=== PATIENT | female | born 1980 | race Two or more races ===

== ENCOUNTER → 2025-06-11 | Outpatient (BNVA) | payer MEDICAID, SELFPAY | END | disposition home or self-care (01) | PROVIDERS: PCP Obstetrics & Gynecology; Referring Provider Obstetrics & Gynecology; Visit Provider Urology | DX: N39.3 Stress incontinence (female) (male) (principal); R33.9 Retention of urine, unspecified; Z87.440 Personal history of urinary (tract) infections | CPT/HCPCS: 81003; 99212; G0463 ==

== ENCOUNTER → 2025-07-28 | Outpatient (BNVA) | payer MEDICAID, SELFPAY | END | disposition home or self-care (01) | PROVIDERS: PCP Obstetrics & Gynecology; Referring Provider Obstetrics & Gynecology; Visit Provider Urology | DX: N35.92 Unspecified urethral stricture, female (principal); N32.89 Other specified disorders of bladder; Z87.440 Personal history of urinary (tract) infections | CPT/HCPCS: 52281; 81003; 96372; A4217; A4649; C1894; J1580; A9270 ==

== ENCOUNTER → 2025-08-10 | Outpatient (BNVA) | payer MEDICAID, SELFPAY | END | disposition home or self-care (01) | PROVIDERS: PCP Obstetrics & Gynecology; Referring Provider Obstetrics & Gynecology; Visit Provider Urology Female Pelvic Medicine and Reconstructive Surgery | DX: N39.3 Stress incontinence (female) (male) (principal) | CPT/HCPCS: 81003; 99212; G0463 ==

== ENCOUNTER → 2025-08-31 | Outpatient (CLI) | payer MEDICAID, SELFPAY ==
--- NOTE | 2025-08-31 15:00 | XR_ITS ---
Examination: CT soft tissue neck, without contrast. 2-D sagittal reconstructions. 2-D coronal reconstructions. 3-D reconstructions. Date and time of exam: August 31, 2025, 1601 hours INDICATIONS: Something stuck in the throat according to the patient, diagnosis nontoxic goiter CTDI: vol (mGy): 12.2 DLP: (mGycm): 309 Technique: Multiple 1.25 mm axial sections of the soft tissue neck without intravenous contrast have been obtained. 2-D sagittal and coronal reconstructions have been obtained. 3-D reconstructions have been obtained. Low dose protocols were performed. One or more of the following dose reduction techniques were used; automated exposure control, adjustment of the mA and/or KV according to patient size, use of iterative reconstruction technique. Findings: Symmetrical optic globes Maxillary antra are clear Symmetrical nasopharynx oropharynx Symmetrical submandibular glands No pathologic cervical lymphadenopathy The larynx appears normal Thyroid lobes are not enlarged No subglottic extension of the thyroid lobes Lung apices clear Normal epiglottis IMPRESSION: Symmetrical nasopharynx oropharynx No soft tissue neck mass Thyroid lobes are not enlarged
[2025-08-31 15:25] LABS: HCG Qualitative,Urine Negative
== END | disposition home or self-care (01) ==
PROVIDERS: PCP Internal Medicine; Referring Provider Internal Medicine; Visit Provider Internal Medicine
DX: E04.9 Nontoxic goiter, unspecified (principal); Z32.00 Encounter for pregnancy test, result unknown
CPT/HCPCS: 70490; 81025

== ENCOUNTER → 2025-10-19 | Outpatient (BNVA) | payer MEDICAID, SELFPAY | END | disposition home or self-care (01) | PROVIDERS: PCP Internal Medicine; Referring Provider Internal Medicine; Visit Provider Urology | DX: Z09 Encounter for follow-up examination after completed treatment for conditions other than malignant neoplasm (principal) | CPT/HCPCS: 81003; 99212; G0463 ==